=== PATIENT | female | born 1945 ===

== ENCOUNTER 2017-12-12 06:10 | Day surgery (SDC) | payer MEDICARE, MEDICAID ==
[2016-03-30 18:20] VITALS: BMI 22.4
[2017-12-12] MEDS ORDERED: Propofol 10 mg/ml Inj (20 ML) ONE (09:23)
[2017-12-12] MEDS ORDERED: Albuterol HFA 90 mcg/actuation (8 g) ONE (09:23)
[2017-12-12] MEDS ORDERED: Lactated Ringer's 1,000 ML IV ONE (09:25)
--- NOTE | 2017-12-12 09:38 | CP.SDSHP ---
Same Day Surgery H & P - History Proposed Procedure: egd Pre-Op Diagnosis: epigastric pain refractory to Rx - Previous Medical/Surgical History Cardiac: Hypertension, ASHD/CAD, Previous IN Pulmonary: Emphysema/COPD Endocrine/Metabolic: Diabetes Previous Surgical History: hiatal hernia repair. PTCA with stents x4 - Allergies Allergies: Allergies aspirin Allergy (Intermediate, Verified 12/12/17 06:48) RASH ITCHING; DIFFICULTY BREATHING Penicillins Allergy (Verified 12/12/17 06:48) RASH ITCHING; DIFFICULTY BREATHING - Physical Exam Vital Signs: Vital Signs 12/12/17 12/12/17 06:59 07:28 Temperature 97.6 F Pulse Rate 60 60 Respiratory 19 Rate Blood Pressure 145/69 O2 Sat by Pulse 100 Oximetry Mental Status: Alert & Oriented x3 Neuro: WNL Heart: WNL Lungs: WNL GI: WNL - Impression Impression: epigastric pain Pt. Evaluated Today:Candidate for Anesthesia & Procedure: Yes - Date & Time Date: 12/12/17 Time: 09:38 Short Stay Discharge - Short Stay Discharge Admitting Diagnosis/Reason for Visit: EPIGASTRIC PAIN / HEARTBURN / GERD Disposition: HOME/ ROUTINE
[2017-12-12] MEDS ORDERED: Pantoprazole 40 mg EC Tab PO STA (09:39)
[2017-12-12] MEDS ORDERED: Lactated Ringer's 500 ML IV SCH (10:00)
[2017-12-12 10:06] VITALS: TEMP 97.4
[2017-12-12 10:40] VITALS: PULSE 54; RESP 12; O2SAT 100
[2017-12-12 10:52] VITALS: BP 120/60
== END 2017-12-12 10:50 | disposition home or self-care (01) ==
LOC: C.ENDO 06:10
PROVIDERS: ATTEND Internal Medicine Gastroenterology
DX: K22.10 Ulcer of esophagus without bleeding (principal); K44.9 Diaphragmatic hernia without obstruction or gangrene; K21.9 Gastro-esophageal reflux disease without esophagitis; I25.2 Old myocardial infarction; I25.10 Atherosclerotic heart disease of native coronary artery without angina pectoris; I10 Essential (primary) hypertension; J44.9 Chronic obstructive pulmonary disease, unspecified; E11.9 Type 2 diabetes mellitus without complications
CPT/HCPCS: 43239; 82948; 88305; J2001; J2704; J7120

== ENCOUNTER 2018-03-29 09:16 | Emergency (ER) | payer MEDICARE, MEDICAID ==
[2018-03-29 09:25] VITALS: BMI 24.6
[2018-03-29 09:26] VITALS: BP 186/69; PULSE 62; RESP 18; TEMP 97.9; O2SAT 99
--- NOTE | 2018-03-29 10:42 | C.PDOC ---
History Of Present Illness 73 y/o female presents to the ER complaining of pain to bilateral knees since yesterday. She reports falling on knees from standing. Patient saw her PCP, Dr. Caputo, who gave her a prescription for X-rays but she came to the ER instead. She denies any tingling, numbness or weakness to bilateral knees. Patient offers no other medical complaints at this time. Time Seen by Provider: 03/29/18 10:24 Chief Complaint (Nursing): Lower Extremity Problem/Injury History Per: Patient History/Exam Limitations: no limitations Onset/Duration Of Symptoms: Days Current Symptoms Are (Timing): Still Present - Knee Description Of Injury: Fell Past Medical History Reviewed: Historical Data, Nursing Documentation, Vital Signs Vital Signs: Last Vital Signs Temp 97.9 F 03/29/18 09:25 Pulse 62 03/29/18 09:25 Resp 18 03/29/18 10:50 BP 186/69 H 03/29/18 09:25 Pulse Ox 99 03/29/18 11:41 - Medical History PMH: Alzheimer's Disease (BEGINNINGS OF DEMENTIA), Anxiety, Arthritis, Asthma, Bronchitis, Colonic Polyps, Diabetes, Gastritis, HTN, Hypercholesterolemia, Hyperlipidemia, Osteoporosis, Pneumonia, TIA (MULTIPLE) Denies: Fractures, Chronic Kidney Disease, Seizures, Sleep Apnea Surgical History: Coronary Stent (X4), Endoscopy - [facility] Procedures D & C NEC (12/08/13) ESOPHAGOGASTRODUODENOSCOPY [EGD] W/CLOSED BIOPSY (08/07/13) Family History: States: Unknown Family Hx - Social History Hx Tobacco Use: No Hx Alcohol Use: No Hx Substance Use: No - Immunization History Hx Tetanus Toxoid Vaccination: Yes Hx Influenza Vaccination: Yes Hx Pneumococcal Vaccination: Yes Review Of Systems Except As Marked, All Systems Reviewed And Found Negative. Constitutional: Negative for: Fever Musculoskeletal: Positive for: Leg Pain (bilateral knee pain) Neurological: Negative for: Weakness, Numbness, Other (tingling) Physical Exam - Physical Exam Appears: Well, Non-toxic, No Acute Distress Skin: Warm, Dry, No Rash Head: Atraumatic, Normacephalic Eye(s): bilateral: PERRL, EOMI Ear(s): Bilateral: Normal Nose: Normal Neck: Normal ROM, Supple Chest: Symmetrical Extremity: Normal ROM, No Tenderness, No Deformity, No Swelling, Other (normal examination of bilateral knees; no abrasions, ecchymosis, or effusion) Pulses: Left Radial: Normal, Right Radial: Normal Neurological/Psych: Oriented x3, Normal Speech, Normal Motor, Normal Reflexes Gait: Steady ED Course And Treatment O2 Sat by Pulse Oximetry: 99 (RA) Pulse Ox Interpretation: Normal - Other Rad b/l knees X-Ray: Interpreted by Me (neg) Reevaluation Time: 10:39 Reassessment Condition: Improved Medical Decision Making Medical Decision Making: Impression: 73 y/o female with bilateral knee pain Plan: --Bilateral knee X-Ray fall from standing yesterday b/l patellar contusions, normal physical exam of knees normal b/l knee films. Disposition Doctor Will See Patient In The: Office Counseled Patient/Family Regarding: Studies Performed, Diagnosis - Disposition Referrals: Lisa Caputo MD [Staff Provider] - Disposition: HOME/ ROUTINE Disposition Time: 10:41 Condition: GOOD Additional Instructions: [place] 1/2 hora por hora, nada caliente ibuprofeno/Advil 400 mg cada 6 horas wilfredo necessario Sigue con Dr. Caputo wilfredo necessario Instructions: Contusion (DC), Knee Sprain (DC) Forms: [email or web address] (Scottish) Print Language: AMHARIC - Clinical Impression Clinical Impression: Knee contusion - Scribe Statement The provider has reviewed the documentation as recorded by the Scribe (Eulalia Parada) Provider Attestation: All medical record entries made by the Scribe were at my direction and personally dictated by me. I have reviewed the chart and agree that the record accurately reflects my personal performance of the history, physical exam, medical decision making, and the department course for this patient. I have also personally directed, reviewed, and agree with the discharge instructions and disposition.
--- NOTE | 2018-03-29 11:13 | RAD ---
Date of service: 03/29/2018 PROCEDURE: Bilateral Knee Radiographs. HISTORY: Fall, mild b/l knee pain COMPARISON: None. FINDINGS: BONES: Right Knee: Bone alignment and mineralization are normal. There is no acute displaced fracture or bone destruction. Left Knee: Bone alignment and mineralization are normal. There is no acute displaced fracture or bone destruction. JOINTS: Right Knee: Normal. Chondrocalcinosis. Left knee: Normal. Chondrocalcinosis. SOFT TISSUES: Right Knee: Normal. Left Knee: Normal. JOINT EFFUSION: Right Knee: None. Left Knee: None. OTHER FINDINGS: None. IMPRESSION: No acute fracture or dislocation.
== END 2018-03-29 11:02 | disposition home or self-care (01) ==
LOC: C.ER 09:16
DX: S80.02XA Contusion of left knee, initial encounter (principal); S80.01XA Contusion of right knee, initial encounter; W18.30XA Fall on same level, unspecified, initial encounter